=== PATIENT | female | born 1965 | race Caucasian/White ===

== ENCOUNTER → 2017-01-27 | Day surgery (SDC) | payer OTHER ==
[~2017-01-27] VITALS: Ht 172.7 cm; Wt 97.7 kg
== END | disposition home or self-care (01) ==
LOC: FAS 07:26 → FOR 08:30 → FAS 08:30
DX: Z12.11 Encounter for screening for malignant neoplasm of colon (principal); E28.2 Polycystic ovarian syndrome; Z98.890 Other specified postprocedural states; Z79.84 Long term (current) use of oral hypoglycemic drugs; Z79.82 Long term (current) use of aspirin; Z79.899 Other long term (current) drug therapy
CPT/HCPCS: J2704